=== PATIENT | female | born 1965 | race Caucasian/White ===

== ENCOUNTER 2017-10-10 13:34 | Emergency (ER) | payer BC ==
[~2017-10-10] VITALS: Ht 165.1 cm; Wt 79.4 kg
[2017-10-10 13:38] VITALS: BP_SYST 121
--- NOTE | 2017-10-10 13:50 | NUR ---
Patient to ER bed 5 to gown for evaluation. Side rails up. Report given to Margarito.
--- NOTE | 2017-10-10 13:57 | NUR ---
Pt complains of facial numbness to right side of face about an hour and a half ago. Patient reported she was at her son's product safety compliance leader appointment and product safety compliance leader asked her, "are you okay? It looks like you might have had a minor stroke. You should go get checked out." Patient reports "after she was told, she started feeling numbness to right side of face." Facial features are symmetrical and patient is able to feel sensation on both sides of face. Booking Clerk are strong and equal bilaterally. Pt denies fever, N/V or diarrhea. Pt ambulated to ER bed 5. No other injuries/complaints per patient or noted.
--- NOTE | 2017-10-10 14:15 | NUR ---
ER Dr. Jones at bedside examining patient.
[2017-10-10 14:24] LABS: BILIRUBIN,URINE NEGATIVE (NEGATIVE); BLOOD, URINE NEGATIVE (NEGATIVE); CLARITY/URINE CLEAR (CLEAR); COLOR,URINE YELLOW (YELLOW); GLUCOSE,URINE NEGATIVE (NEGATIVE); KETONES,URINE NEGATIVE (NEGATIVE); LEUKOCYTE ESTERASE ,URINE NEGATIVE (NEGATIVE); NITRITE, URINE NEGATIVE (NEGATIVE); PH,URINE 6.5 (5.0-8.0); PROTEIN URINE NEGATIVE (NEGATIVE); UROBILINOGEN,URINE 0.2 (0.2-1.0)
[2017-10-10 14:49] VITALS: BP_SYST 116
--- NOTE | 2017-10-10 14:49 | NUR ---
Patient given written and verbal discharge instructions and verbalizes understanding. ER MD discussed with patient the results and treatment provided. Patient in stable condition. ID arm band removed. Rx given. Patient educated on pain management and to follow up with PMD. Pain Scale 0. Opportunity for questions provided and answered.
[2017-10-10 14:50] LABS: BARBITURATE, URINE NEGATIVE (NEG <=200); BENZODIAZEPINE, URINE NEGATIVE (NEG <=150); CANNABINOID, URINE NEGATIVE (NEG <=50); COCAINE, URINE NEGATIVE (NEG <=150); METHAMPHETAMINES SCREEN,URINE NEGATIVE (NEG <=500); OPIATE, URINE NEGATIVE (NEG <=100); PHENCYCLIDINE SCREEN,URINE NEGATIVE (NEG <=25); UR TRICYCLIC ANTIDEPRESSANTS NEGATIVE (NEG <=300); URINE AMPHETAMINE NEGATIVE (NEG <=500); URINE METHADONE NEGATIVE (NEG <=200); URINE OXYCODONE SCREEN NEGATIVE (NEG <=100); URINE PROPOXYPHENE SCREEN NEGATIVE (NEG <=300)
== END 2017-10-10 14:49 | disposition home or self-care (01) ==
LOC: SED 13:34
DX: Z00.00 Encounter for general adult medical examination without abnormal findings (principal); R20.0 Anesthesia of skin
CPT/HCPCS: 80307; 81003; 93005; 99285

== ENCOUNTER 2018-05-18 00:25 | Emergency (ER) | payer BC ==
[~2018-05-18] VITALS: Ht 165.1 cm; Wt 77.1 kg
[2018-05-18 00:31] VITALS: BP_SYST 118
[2018-05-18 01:02] LABS: BILIRUBIN,URINE NEGATIVE (NEGATIVE); BLOOD, URINE NEGATIVE (NEGATIVE); CLARITY/URINE CLEAR (CLEAR); COLOR,URINE YELLOW (YELLOW); GLUCOSE,URINE NEGATIVE (NEGATIVE); KETONES,URINE NEGATIVE (NEGATIVE); LEUKOCYTE ESTERASE ,URINE NEGATIVE (NEGATIVE); NITRITE, URINE NEGATIVE (NEGATIVE); PROTEIN URINE NEGATIVE (NEGATIVE)
[2018-05-18 01:33] VITALS: BP_SYST 114
== END 2018-05-18 01:33 | disposition home or self-care (01) ==
LOC: SED 00:25
DX: R42 Dizziness and giddiness (principal)
CPT/HCPCS: 81003; 99283

== ENCOUNTER 2019-05-12 01:48 | Emergency (ER) | payer BC ==
[~2019-05-12] VITALS: Ht 162.6 cm; Wt 77.1 kg
[2019-05-12 02:20] VITALS: BP_SYST 119
== END 2019-05-12 04:00 | disposition left against medical advice (07) ==
LOC: SED 01:48
DX: M79.641 Pain in right hand (principal); Z53.21 Procedure and treatment not carried out due to patient leaving prior to being seen by health care provider
CPT/HCPCS: 99281

== ENCOUNTER 2021-05-28 18:56 | Emergency (ER) | payer BC ==
[~2021-05-28] VITALS: Ht 165.1 cm; Wt 74.8 kg
[2021-05-28 19:03] VITALS: BP_SYST 134
[2021-05-28 21:00] VITALS: BP_SYST 113
== END 2021-05-28 21:00 | disposition home or self-care (01) ==
LOC: SED 19:30
DX: S02.2XXA Fracture of nasal bones, initial encounter for closed fracture (principal); S63.615A Unspecified sprain of left ring finger, initial encounter; S00.31XA Abrasion of nose, initial encounter; V18.4XXA Pedal cycle driver injured in noncollision transport accident in traffic accident, initial encounter; Y93.89 Activity, other specified; Y92.89 Other specified places as the place of occurrence of the external cause; Y99.8 Other external cause status
CPT/HCPCS: 70450-TC; 72125-TC; 73140-TC; 76376; 99285